=== PATIENT | male | born 1955 | race Caucasian/White ===

== ENCOUNTER 2016-08-07 17:13 | Inpatient (IN) | payer OTHER ==
[~2016-08-07] VITALS: Ht 175.3 cm; Wt 76.2 kg
--- NOTE | ~2016-08-07 | EKG ---
[address] [place] [address] ELECTROCARDIOGRAM REPORT Name: RALF LOUIS Room #: 436-P ADM IN M.R.#: [id number] Admission: 08/07/16 Attend Phys: Trevin Cuba MD Discharge: Date of : 51 Report #: [id number] THIS REPORT FOR: //name// [facility] ED Test Date: 2016-08-07 Test Time: 18:26:57 Pat Name: RALF LOUIS Department: Room: 436 Gender: M Acute Care Physician: : 1955 Requested By: Everette Norman Order Number: [id number] MD: Fortunato Meyers Measurements Intervals [place] Rate: 96 P: 67 CA: 136 QRS: 3 QRSD: 107 T: 20 QT: 372 QTc: 471 Interpretive Statements Sinus rhythm Low voltage, extremity leads RSR' in V1 or V2, right VCD or RVH Nonspecific T abnormalities, anterior leads No previous ECG available for comparison Electronically Signed On 08-09-2016 14:10:22 BASTING MACHINE OPERATOR by Fortunato Meyers [email or web address] <ELECTRONICALLY SIGNED> By: Fortunato Meyers MD, [facility] 08/09/16 1410 182 182 Fortunato Meyers MD, [facility] /EPI
--- NOTE | ~2016-08-07 | HC ---
[facility] [place] [address] CONSULTATION Name: RALF LOUIS JR Room #: 436-P [facility] IN .R.#: [id number] Admission: 08/07/16 Attend Phys: Trevin Cuba MD Discharge: Date of : 51 Report #: [id number] THIS REPORT FOR: //name// CC: Tristan Cuba DATE OF SERVICE: 08/08/2016 HISTORY OF PRESENT ILLNESS: The patient is 61-year-old male who was admitted for gross hematuria. He had a Singh catheter placed, but the nurse was unable to keep it from clotting off. In fact, they placed a very small 16 Cymro Singh catheter. The patient states that he has not had previous prostate surgery. He has had a chronic catheter for sometime, but is unsure of the length of time. He is unsure of why he has a chronic catheter. MEDICATIONS: Exelon, Tylenol, insulin, Celexa, hydrochlorothiazide, DiaBeta, Zestril, Flomax. FAMILY HISTORY, SOCIAL HISTORY AND REVIEW OF SYSTEMS: Per the chart. PHYSICAL EXAMINATION: ABDOMEN: Soft. He has got a small Singh catheter in place which is not draining. IMPRESSION AND PLAN: 1. Gross hematuria/clot retention. We will plan for placement of a 3-way Singh catheter to begin irrigation. He will also need upper tract studies with a renal ultrasound or other evaluation. However, this is likely due to his chronic catheter. 2. Procedure Note: The patient's Singh catheter was removed. His penis was prepped and draped in usual fashion. A 10 mL of lubricant was infused into the urethra. A 20-Cymro 3-way catheter was easily placed. I then irrigated his bladder clear of clots using 2 L of fluid. The urine was noted to be light pink. I attempted to start 3-way irrigation, but there was no tubing on the floor or any other stations on the 4th floor. They will obtain the tubing and begin continuous bladder irrigation. <ELECTRONICALLY SIGNED> By: Gunnar Saldana MD 08/09/16 0709 1231 0028 Gunnar Saldana MD /nt
[~2016-08-07 17:13] MED LIST: AMOX TR-K CLV1 EAC4 PO; APAP500; ASPIRIN81 M2 PO; ATORVASTATIN CA10 MG PO; AUGMENTIN 875875 MG PO; AZITHROMYCIN 2250 MG PO; BACTRIM DS TAB1 EACH PO; BAYER CHEWABLE81 MG PO; CEFTIN 250 MG250 MG; CEFTIN 250 MG250 MG PO; CELEXA 20 MG TA20 M1 PO; CIPRO500 MG PO; CIPROFLOXACIN500 M1 PO; DUONEB 2.5-0.5 M3 ML INH; ENOXAPARIN30 MG/0.1 SUBQ; EXELON 9.5 MG9.5 MG TD; EXELON1 EAC1 TRANSDERM; GLIPIZIDE XL10 MG PO; GLUCOPHAGE1000 MG PO; GLUCOPHAGE850 MG PO; GLYBURIDE 2.52.5 MG PO; GLYCOLAX17 GM PO; HUMULINR100; HYDROCHLOROTH12.5 M1 PO; IBUPROFEN 800800 M1 PO; KEFLEX500 MG PO; KEPPRA 500 MG500 M1 PO; LANTUS SUBQ; LISINOPRIL20 MG PO; MULTIVITAMINS1 EAC7; MULTIVITAMINS1 EAC7 PO; NIACIN 500 MG500 M1 PO; NOVOLOG100 UNIT/1; OMEGA-31000 M1 PO; OYSTER SHELL+D1 EAC1 PO; POLYETHYLENE GLY1 G1; POTASSIUM20 PO; PRINIVIL20 MG PO; PROBIOTIC1 EAC1 PO; PROTONIX40 M1 PO; RISAMINE OINTM113 GM; RIVASTIGMINE TRANSDERM; SIMVASTATIN20 MG PO; TAMSULOSIN HCL0.4 M1 PO; TRAMADOL 50 MG50 MG PO; TYLENOL325 MG PO; VITAMIN D2400 UNIT PO; VITAMIN D250000 UNIT; VITAMIN D250000 UNIT PO; VITAMIN D3400 UNIT PO; VITAMIN D400 UNIT PO; VITAMINC500 PO
[2016-08-07 17:17] VITALS: BP 106/64
[2016-08-07 17:51] LABS: HEMATOCRIT 35.7 % (42.0-52.0); HEMOGLOBIN 11.7 gm/dL (14.0-18.0); MCH 26.7 pg (26.0-34.0); MCHC 32.9 % (28.0-37.0); MCV 81.4 fL (80.0-100.0); PLATELET COUNT 188 thou/uL (150-400); RBC 4.39 mil/uL (4.50-6.00); RDW 15.2 % (10.5-14.5); WBC 20.7 thou/uL (4.0-11.0)
[2016-08-07 17:54] LABS: MANUAL DIFF YES
[2016-08-07 18:05] LABS: ABG SAMPLE TYPE ARTERIAL; BE(vivo) 0.3 mmol/L (-2 to +3); HCO3 24.7 mmol/L (22.0-26.0); LACTATE 1.14 mmol/L (0.5-2.0); O2(CT) 14.5 mL/dL (15.0-23.0); O2Hb 93.2 % (92.0-98.0); PCO2 39.2 mmHg (35.0-45.0); PO2 76.1 mmHg (80.0-100.0); pH 7.418 (7.360-7.450); sO2 95.5 % (92.0-98.0); tCO2 25.9 mmol/L (24.0-30.0)
[2016-08-07 18:07] LABS: ABG COMMENT ROOM AIR; STICK SITE R.RADIAL
[2016-08-07 18:07] LABS: ANION GAP 11 mmol/L (7-16); BUN 59 mg/dL (7-18); CALCIUM 8.7 mg/dL (8.5-10.1); CHLORIDE 114 mmol/L (98-107); CO2 25 mmol/L (21-32); CREATININE 1.6 mg/dL (0.6-1.3); GLUCOSE 160 mg/dL (70-99); POTASSIUM 3.6 mmol/L (3.5-5.1); SODIUM 150 mmol/L (136-145)
[2016-08-07 18:14] LABS: ALBUMIN 2.7 g/dL (3.4-5.0); ALKALINE PHOSPHATASE 57 U/L (46-116); DIRECT BILIRUBIN 0.2 mg/dL (<0.1-0.3); NT-PRO BRAIN NAT PEPTIDE 901 pg/mL (<300); SGOT 12 U/L (15-37); SGPT 7 U/L (30-65); TOTAL BILIRUBIN 0.6 mg/dL (<0.1-1.0); TOTAL PROTEIN 6.2 g/dL (6.4-8.2); TROPONIN-I < 0.04 ng/mL (<0.04-0.07)
[2016-08-07 18:28] LABS: TOTAL CELL COUNT 100
[2016-08-07 18:29] LABS: LARGE PLATELETS RARE
[2016-08-07 19:54] VITALS: BP 103/48
[2016-08-07 20:00] VITALS: BP 122/64
[2016-08-08 00:41] VITALS: BP 122/69
[2016-08-08 05:40] LABS: PROTIME 10.2 Seconds (9.3-11.4)
[2016-08-08 05:50] LABS: ALBUMIN 2.6 g/dL (3.4-5.0); CALCIUM 8.7 mg/dL (8.5-10.1); CREATININE 1.1 mg/dL (0.6-1.3); MAGNESIUM 2.2 mg/dL (1.8-2.4); POTASSIUM 3.4 mmol/L (3.5-5.1); TOTAL BILIRUBIN 0.8 mg/dL (<0.1-1.0); TOTAL PROTEIN 6.2 g/dL (6.4-8.2)
[2016-08-08 06:14] LABS: HEMATOCRIT 35.2 % (42.0-52.0); HEMOGLOBIN 11.5 gm/dL (14.0-18.0); MCH 26.8 pg (26.0-34.0); MCHC 32.8 % (28.0-37.0); MCV 81.7 fL (80.0-100.0); PLATELET COUNT 190 thou/uL (150-400); RBC 4.31 mil/uL (4.50-6.00); RDW 14.8 % (10.5-14.5); WBC 14.3 thou/uL (4.0-11.0)
[2016-08-08 06:17] LABS: MANUAL DIFF YES
[2016-08-08 08:00] VITALS: BP 118/60
[2016-08-08 09:59] LABS: ABSOLUTE NEUTROPHILS 12.3 thou/uL (1.4-8.2); MYELOCYTES 1 %; TOTAL CELL COUNT 100
[2016-08-08 10:01] LABS: ANISOCYTOSIS 1+; OVALOCYTES 1+
[2016-08-08 12:00] VITALS: BP 142/82
[2016-08-08 14:49] LABS: URINE BLOOD 3+ (Negative); URINE COLOR RED; URINE GLUCOSE-RANDOM* NEGATIVE (Negative); URINE KETONES TRACE (Negative); URINE LEUKOCYTES-REFLEX 2+ (Negative); URINE PROTEIN (DIPSTICK) 3+ (Negative)
[2016-08-08 14:50] LABS: ICTOTEST (BILI CONFIRMATORY) Negative (Negative); URINE BILIRUBIN NEGATIVE (Negative)
[2016-08-08 14:52] LABS: SSA (PROTEIN CONFIRMATORY) 3+ (APPROX. 200-500) mg/dL (Negative)
[2016-08-08 15:01] LABS: CASTS None Seen /LPF (None Seen); SQUAMOUS 0-3 Few /LPF (0-3); URINE RBC >20 Many /HPF (0-2); URINE WBC-REFLEX >25 Many /HPF (0-5)
[2016-08-08 16:00] VITALS: BP 155/85
[2016-08-08 19:45] VITALS: BP 111/61
[2016-08-09 03:08] VITALS: BP 113/55
[2016-08-09 08:00] VITALS: BP 122/71
[2016-08-09 08:12] LABS: ALBUMIN 2.4 g/dL (3.4-5.0); CALCIUM 7.9 mg/dL (8.5-10.1); CREATININE 0.8 mg/dL (0.6-1.3); TOTAL BILIRUBIN 0.7 mg/dL (<0.1-1.0); TOTAL PROTEIN 5.8 g/dL (6.4-8.2)
[2016-08-09 12:00] VITALS: BP 123/73
[2016-08-09 16:00] VITALS: BP 127/77
[2016-08-09 20:55] VITALS: BP 133/64
[2016-08-10 04:15] VITALS: BP 138/82
[2016-08-10 05:29] LABS: HEMATOCRIT 28.8 % (42.0-52.0); HEMOGLOBIN 9.8 gm/dL (14.0-18.0); MCH 27.3 pg (26.0-34.0); MCHC 34.1 % (28.0-37.0); MCV 80.1 fL (80.0-100.0); RBC 3.6 mil/uL (4.50-6.00); RDW 14.6 % (10.5-14.5); WBC 6.3 thou/uL (4.0-11.0)
[2016-08-10 05:38] LABS: ALBUMIN 2.2 g/dL (3.4-5.0); CALCIUM 7.6 mg/dL (8.5-10.1); CREATININE 0.7 mg/dL (0.6-1.3); PHOSPHORUS 2.9 mg/dL (2.5-4.9)
[2016-08-10 06:03] LABS: POTASSIUM 2.6 mmol/L (3.5-5.1)
[2016-08-10 08:00] VITALS: BP 139/60
[2016-08-10] MEDS ORDERED: AUGMENTIN 875875 MG PO (10:57)
[2016-08-10 12:00] VITALS: BP 136/72
[2016-08-10 15:45] LABS: MAGNESIUM 1.9 mg/dL (1.8-2.4); POTASSIUM 3.6 mmol/L (3.5-5.1)
[2016-08-10 16:00] VITALS: BP 142/70
== END 2016-08-10 16:48 | DRG 871 ==
LOC: ER 17:13 → EROBS 19:20 → 4S 19:20 → EROBS 19:58 → 4S 21:14
PROVIDERS: Hospitalist; Nurse Practitioner
DX: A41.9 Sepsis, unspecified organism (principal); G93.49 Other encephalopathy; N39.0 Urinary tract infection, site not specified; J90 Pleural effusion, not elsewhere classified; E87.0 Hyperosmolality and hypernatremia; J32.8 Other chronic sinusitis; F32.9 Major depressive disorder, single episode, unspecified; R31.9 Hematuria, unspecified; E78.5 Hyperlipidemia, unspecified; N40.0 Benign prostatic hyperplasia without lower urinary tract symptoms; E11.40 Type 2 diabetes mellitus with diabetic neuropathy, unspecified; F03.90 Unspecified dementia, unspecified severity, without behavioral disturbance, psychotic disturbance, mood disturbance, and anxiety; D72.829 Elevated white blood cell count, unspecified; E86.0 Dehydration; Z79.899 Other long term (current) drug therapy; Z88.1 Allergy status to other antibiotic agents; Z85.46 Personal history of malignant neoplasm of prostate; Z86.14 Personal history of Methicillin resistant Staphylococcus aureus infection; Z86.73 Personal history of transient ischemic attack (TIA), and cerebral infarction without residual deficits; Z79.82 Long term (current) use of aspirin
CPT/HCPCS: 10100

== ENCOUNTER 2017-01-05 02:18 | Inpatient (IN) | payer OTHER ==
[~2017-01-05] VITALS: Ht 182.9 cm; Wt 82.6 kg
[2017-01-05] VITALS (31 sets, daily range): BP systolic 82–101; BP diastolic 38–61
--- NOTE | ~2017-01-05 | HC ---
[facility] [place] [address] CONSULTATION Name: RALF LOUIS JR Room #: 246-P [facility] IN .R.#: [id number] Admission: 01/05/17 Attend Phys: rTevin Cuba MD Discharge: Date of : 51 Report #: [id number] THIS REPORT FOR: //name// CC: Socrates Cuba DATE OF SERVICE: 01/05/2017 REASON FOR CONSULTATION: I was asked to evaluate concerning septic shock and gram-negative bacteremia. HISTORY OF PRESENT ILLNESS: The patient was a 61-year-old history of stroke, aphasia and neurogenic bladder who has had a chronic indwelling Singh catheter and history of nephrolithiasis. Actually had bladder stones removed in September of this year. He presents from the fdc with change in mental status and gross hematuria from his Singh catheter. Here, he has been tachycardic and had blood pressure down in the 80 systolic. He had temperature up to 104.3 degrees. His respiratory status has remained stable. He remains encephalopathic. Although his white count was normal, he had 29% bands and evidence of pyuria, hematuria and bacteriuria on his urinalysis. He was taken to the Intensive Care Unit after fluid resuscitation. Still on normal saline drip at 125 mL/hr. Remains on oxygen per nasal cannula. He has had recurrent urinary tract infections in the past. ALLERGIES: No medication allergies, is allergic to BEESTINGS. MEDICATIONS: As noted on his MAR, now on vancomycin and Zosyn. PAST MEDICAL HISTORY: Significant chronic sinusitis, depression, hyperlipidemia, bursitis of his shoulder, metabolic encephalopathy, frequent urinary tract infections, BPH, diabetes, prostate cancer, stroke in 2008, left lung noncalcified granuloma identified in 2012, dementia, hypertension. FAMILY HISTORY: Noncontributory. SOCIAL HISTORY: Nonsmoker, no significant alcohol intake. Now resides in a fdc. The patient is able to ambulate and feed himself. He remains aphasic. REVIEW OF SYSTEMS: As noted above with no additions including no nausea, vomiting or diarrhea. There has been no cough or sputum production. He has had no rash or decubiti. PHYSICAL EXAMINATION: VITAL SIGNS: Temperature now is 98.4 degrees, blood pressure 94/52, heart rate [address] [address] CONSULTATION Name: HERIBERTORALF Shani Room #: [facility] IN [facility].#: [id number] Admission: 01/05/17 Attend Phys: Trevin Cuba MD Discharge: Date of : 53 Report #: [id number] 120, respiratory rate 23. IV site unremarkable. GENERAL: He remains in bed, lethargic, although will nod his head yes or no. Did not seem to be in any pain. SKIN: Unremarkable. LYMPH: Unremarkable. EYES: Unremarkable. MOUTH: Unremarkable. NECK: Supple. LUNGS: Few crackles in the left base posteriorly. HEART: Regular, without murmur, tachycardic. ABDOMEN: Soft, nontender, no hepatosplenomegaly or mass. He had mild left CVA tenderness. Had a large indwelling Singh catheter. There is some bleeding around the catheter. EXTREMITIES: Unremarkable. LABORATORY STUDIES: Sodium 148, potassium 3.3, bicarbonate 22, creatinine 2.1, ALT 27, bilirubin normal, alkaline phosphatase 167, lactate 3.7. Hemoglobin 12.1, platelet count 164,000, white count 6.3 with 29% bands. Urinalysis positive for bacteria, rbc's and wbc's. Chest x-ray, left lower lobe atelectasis. Blood cultures 1 of 2 showing gram-negative bacilli. Urine culture is pending. IMPRESSION: A 61-year-old post-stroke, fairly compromised with aphasia and underlying dementia, neurogenic bladder, nephrolithiasis who presents with gram negative septic shock related to urinary tract infection. PLAN: Recommend sepsis support, broad IV antibiotic therapy, CT scan of the abdomen to ensure no upper tract obstruction. <ELECTRONICALLY SIGNED> By: Claudio Ashraf MD 01/06/17 0942 1637 07 Claudio Ashraf MD /nt
--- NOTE | ~2017-01-05 | EKG ---
[address] [address] ELECTROCARDIOGRAM REPORT Name: RALF LOUIS Room #: 251-P ADM IN M.R.#: [id number] Admission: 01/05/17 Attend Phys: Trevin Cuba MD Discharge: Date of : 51 Report #: [id number] THIS REPORT FOR: //name// [facility] ED Test Date: 2017-01-05 Test Time: 03:19:09 Pat Name: RALF LOUIS Department: Room: 251 P Gender: M Medical Translator: ALEE : 1955 Requested By: Trevin Cuba Order Number: [id number] MD: Fortunato Meyers Measurements Intervals [place] Rate: 163 P: 57 NM: 111 QRS: -15 QRSD: 108 T: 15 QT: 275 QTc: 453 Interpretive Statements Sinus tachycardia with frequent atrial premature complexes Borderline left axis deviation Abnormal R-wave progression, early transition ST depression, probably rate related no previous ECGs available for comparison Electronically Signed On 01-05-2017 9:02:38 CDT by Fortunato Meyers [email or web address] <ELECTRONICALLY SIGNED> By: Fortunato Meyers MD, [facility] 01/05/17 0902 0319 Fortunato Meyers MD, [facility] /EPI
[2017-01-05 03:00] LABS: HEMATOCRIT 36.5 % (42.0-52.0); HEMOGLOBIN 12.1 gm/dL (14.0-18.0); MCV 81.6 fL (80.0-100.0); PLATELET COUNT 164 thou/uL (150-400); RBC 4.47 mil/uL (4.50-6.00); RDW 14.6 % (10.5-14.5); WBC 6.3 thou/uL (4.0-11.0)
[2017-01-05 03:01] LABS: MANUAL DIFF YES
[2017-01-05 03:07] LABS: APTT 25.8 Seconds (24.5-32.8); CALCIUM 8.7 mg/dL (8.5-10.1); CREATININE 2.1 mg/dL (0.7-1.3); INR 1.1; POTASSIUM 3.3 mmol/L (3.5-5.1); PROTIME 11.3 Seconds (9.3-11.4)
[2017-01-05 03:12] LABS: ALBUMIN 2.7 g/dL (3.4-5.0); TOTAL PROTEIN 6.5 g/dL (6.4-8.2)
[2017-01-05 03:20] LABS: ABSOLUTE NEUTROPHILS 5.9 thou/uL (1.4-8.2); TOTAL CELL COUNT 100
[2017-01-05 04:17] LABS: URINE BILIRUBIN NEGATIVE (Negative); URINE BLOOD 3+ (Negative); URINE COLOR YELLOW; URINE GLUCOSE-RANDOM* TRACE (Negative); URINE KETONES NEGATIVE (Negative); URINE LEUKOCYTES-REFLEX 3+ (Negative); URINE PROTEIN (DIPSTICK) 1+ (Negative); URINE UROBILINOGEN 0.2 E.U./dl (0.2-1.0)
[2017-01-05 04:54] LABS: SQUAMOUS None Seen /LPF (0-3)
[2017-01-05 04:55] LABS: CASTS None Seen /LPF (None Seen); CRYSTALS None Seen /LPF (None Seen); TRANSITIONAL EPITHEL CELL >10 Many /LPF (None Seen); URINE WBC-REFLEX >25 Many /HPF (0-5)
[2017-01-05] MEDS ORDERED: EXELON1 EAC1 TD (08:11)
[2017-01-06] VITALS (16 sets, daily range): BP systolic 100–149; BP diastolic 58–96
[2017-01-06 02:37] LABS: HEMATOCRIT 30.4 % (42.0-52.0); MCH 26.7 pg (26.0-34.0); MCHC 32.6 g/dL (28.0-37.0); MCV 81.7 fL (80.0-100.0); PLATELET COUNT 121 thou/uL (150-400); RBC 3.72 mil/uL (4.50-6.00); RDW 14.6 % (10.5-14.5)
[2017-01-06 02:40] LABS: MANUAL DIFF YES
[2017-01-06 02:43] LABS: HEMOGLOBIN 9.9 gm/dL (14.0-18.0); WBC 28.1 thou/uL (4.0-11.0)
[2017-01-06 02:49] LABS: CALCIUM 7.4 mg/dL (8.5-10.1); MAGNESIUM 1.5 mg/dL (1.8-2.4); POTASSIUM 3.2 mmol/L (3.5-5.1)
[2017-01-06 02:50] LABS: CREATININE 1.1 mg/dL (0.7-1.3)
[2017-01-06 04:53] LABS: ABSOLUTE NEUTROPHILS 27.3 thou/uL (1.4-8.2); LARGE PLATELETS OCCASIONAL; TOTAL CELL COUNT 100; TOXIC GRANULATION 1+
[2017-01-07 03:57] VITALS: BP 139/92
[2017-01-07 06:00] LABS: HEMATOCRIT 30.8 % (42.0-52.0); HEMOGLOBIN 10.1 gm/dL (14.0-18.0); PLATELET COUNT 120 thou/uL (150-400); RBC 3.75 mil/uL (4.50-6.00); RDW 14.5 % (10.5-14.5); WBC 18.1 thou/uL (4.0-11.0)
[2017-01-07 06:02] LABS: MANUAL DIFF YES
[2017-01-07 06:25] LABS: CALCIUM 7.9 mg/dL (8.5-10.1); MAGNESIUM 1.6 mg/dL (1.8-2.4); POTASSIUM 3.1 mmol/L (3.5-5.1); TOTAL BILIRUBIN 0.4 mg/dL (<0.1-1.0); TOTAL PROTEIN 5.5 g/dL (6.4-8.2)
[2017-01-07 07:45] VITALS: BP 143/85; BP 144/84
[2017-01-07 07:45] LABS: ABSOLUTE NEUTROPHILS 16.8 thou/uL (1.4-8.2); ANISOCYTOSIS 1+; METAMYELOCYTES 1 %; OVALOCYTES FEW; TOTAL CELL COUNT 100
[2017-01-07 11:34] VITALS: BP 142/94
[2017-01-07 15:24] VITALS: BP 143/88
[2017-01-07 19:44] VITALS: BP 160/90
[2017-01-08 03:39] VITALS: BP 143/78
[2017-01-08 06:11] LABS: HEMATOCRIT 31.2 % (42.0-52.0); HEMOGLOBIN 10.3 gm/dL (14.0-18.0); MCH 27.1 pg (26.0-34.0); MCHC 33.1 g/dL (28.0-37.0); PLATELET COUNT 110 thou/uL (150-400); RBC 3.81 mil/uL (4.50-6.00); RDW 14.4 % (10.5-14.5); WBC 13.3 thou/uL (4.0-11.0)
[2017-01-08 06:18] LABS: MANUAL DIFF YES
[2017-01-08 06:19] LABS: CALCIUM 7.9 mg/dL (8.5-10.1); CREATININE 0.8 mg/dL (0.7-1.3); MAGNESIUM 1.2 mg/dL (1.8-2.4)
[2017-01-08 06:35] LABS: POTASSIUM 2.9 mmol/L (3.5-5.1)
[2017-01-08 07:43] LABS: ABSOLUTE NEUTROPHILS 11.2 thou/uL (1.4-8.2); ANISOCYTOSIS 1+; ATYPICAL LYMPHS 1 %; OVALOCYTES 1+; TOTAL CELL COUNT 100
[2017-01-08 08:18] VITALS: BP 144/86
[2017-01-08 13:03] VITALS: BP 141/87
[2017-01-08 17:12] VITALS: BP 135/79
[2017-01-08 19:22] VITALS: BP 135/79
[2017-01-08 20:37] LABS: MAGNESIUM 1.3 mg/dL (1.8-2.4); POTASSIUM 3.4 mmol/L (3.5-5.1)
[2017-01-09 03:24] VITALS: BP 126/81
[2017-01-09 05:17] LABS: BASOPHILS 0.1 % (0.0-2.0); EOSINOPHILS 3.4 % (0.0-3.0); HEMOGLOBIN 10.6 gm/dL (14.0-18.0); LYMPHOCYTES 9.9 % (24.0-44.0); MCH 26.8 pg (26.0-34.0); MCV 81.2 fL (80.0-100.0); MONOCYTES 7.3 % (1.0-8.0); PLATELET COUNT 110 thou/uL (150-400); POLYS 79.3 % (36.0-66.0); RBC 3.94 mil/uL (4.50-6.00); RDW 14.7 % (10.5-14.5); WBC 12.7 thou/uL (4.0-11.0)
[2017-01-09 05:26] LABS: MAGNESIUM 2.1 mg/dL (1.8-2.4); POTASSIUM 3.2 mmol/L (3.5-5.1)
[2017-01-09 05:29] LABS: MANUAL DIFF NO
[2017-01-09 07:41] VITALS: BP 130/73
[2017-01-09] MEDS ORDERED: PROTONIX40 M1 PO (11:42)
[2017-01-09 11:43] VITALS: BP 132/80
[2017-01-09] MEDS ORDERED: AUGMENTIN 875875 MG PO (11:44)
[2017-01-09 15:34] VITALS: BP 130/82
== END 2017-01-09 16:26 | DRG 871 ==
LOC: ER 02:18 → EROBS 03:17 → ICU 03:17 → 4W 01-06 14:52
PROVIDERS: Emergency Medicine; Hospitalist; Nurse Practitioner; Specialist
DX: A41.81 Sepsis due to Enterococcus (principal); J18.9 Pneumonia, unspecified organism; R65.21 Severe sepsis with septic shock; N39.0 Urinary tract infection, site not specified; N12 Tubulo-interstitial nephritis, not specified as acute or chronic; N17.9 Acute kidney failure, unspecified; E87.0 Hyperosmolality and hypernatremia; E44.0 Moderate protein-calorie malnutrition; A41.59 Other Gram-negative sepsis; F32.9 Major depressive disorder, single episode, unspecified; E78.5 Hyperlipidemia, unspecified; Z66 Do not resuscitate; E83.42 Hypomagnesemia; K59.00 Constipation, unspecified; B96.20 Unspecified Escherichia coli [E. coli] as the cause of diseases classified elsewhere; B96.1 Klebsiella pneumoniae [K. pneumoniae] as the cause of diseases classified elsewhere; E11.40 Type 2 diabetes mellitus with diabetic neuropathy, unspecified; I10 Essential (primary) hypertension; F03.90 Unspecified dementia, unspecified severity, without behavioral disturbance, psychotic disturbance, mood disturbance, and anxiety; E86.0 Dehydration; R31.0 Gross hematuria; N40.1 Benign prostatic hyperplasia with lower urinary tract symptoms; R33.8 Other retention of urine; E87.6 Hypokalemia; E11.65 Type 2 diabetes mellitus with hyperglycemia; Z68.24 Body mass index [BMI] 24.0-24.9, adult; I69.320 Aphasia following cerebral infarction; Z86.14 Personal history of Methicillin resistant Staphylococcus aureus infection; I69.319 Unspecified symptoms and signs involving cognitive functions following cerebral infarction; Z85.46 Personal history of malignant neoplasm of prostate; Z91.030 Bee allergy status; Z79.4 Long term (current) use of insulin; Z79.82 Long term (current) use of aspirin; Z79.84 Long term (current) use of oral hypoglycemic drugs; Z79.899 Other long term (current) drug therapy
CPT/HCPCS: 10045; 10078; 50455

== ENCOUNTER 2017-04-10 16:20 | Emergency (ER) | payer OTHER ==
[~2017-04-10] VITALS: Ht 182.9 cm; Wt 81.7 kg
[~2017-04-10 16:20] MED LIST changes: +EXELON1 EAC1 TD
[2017-04-10 16:52] LABS: HEMATOCRIT 34.9 % (42.0-52.0); HEMOGLOBIN 11.3 gm/dL (14.0-18.0); MCH 26.1 pg (26.0-34.0); MCHC 32.5 g/dL (28.0-37.0); MCV 80.2 fL (80.0-100.0); PLATELET COUNT 192 thou/uL (150-400); RBC 4.35 mil/uL (4.50-6.00); RDW 16.2 % (10.5-14.5); WBC 13.5 thou/uL (4.0-11.0)
[2017-04-10 16:53] LABS: MANUAL DIFF YES
[2017-04-10 17:01] LABS: CALCIUM 8.5 mg/dL (8.5-10.1); CREATININE 0.9 mg/dL (0.7-1.3); POTASSIUM 3.4 mmol/L (3.5-5.1)
[2017-04-10 17:06] LABS: ALBUMIN 3.2 g/dL (3.4-5.0); TOTAL BILIRUBIN 0.3 mg/dL (<0.1-1.0); TOTAL PROTEIN 6.6 g/dL (6.4-8.2)
[2017-04-10 17:10] LABS: PROTIME 10.1 Seconds (9.3-11.4)
[2017-04-10 17:20] LABS: URINE BLOOD 3+ (Negative); URINE COLOR RED; URINE GLUCOSE-RANDOM* NEGATIVE (Negative); URINE KETONES TRACE (Negative); URINE NITRITE POSITIVE (Negative); URINE PROTEIN (DIPSTICK) 3+ (Negative); URINE SPECIFIC GRAVITY 1.015 (1.003-1.035)
[2017-04-10 17:21] LABS: URINE BILIRUBIN NEGATIVE (Negative)
[2017-04-10 17:22] LABS: SQUAMOUS None Seen /LPF (0-3)
[2017-04-10 17:23] LABS: CASTS None Seen /LPF (None Seen); CRYSTALS None Seen /LPF (None Seen); URINE RBC >20 Many /HPF (0-2); URINE WBC 6-15 Few /HPF (0-5)
[2017-04-10 17:26] LABS: ABSOLUTE NEUTROPHILS 10.7 thou/uL (1.4-8.2); TOTAL CELL COUNT 100
[2017-04-10 17:27] LABS: ANISOCYTOSIS 1+
[2017-04-10] MEDS ORDERED: KEFLEX500 MG PO (18:11)
== END 2017-04-10 19:22 ==
LOC: ER 16:20
PROVIDERS: Physician Assistant
DX: N39.0 Urinary tract infection, site not specified (principal); F32.9 Major depressive disorder, single episode, unspecified; E78.5 Hyperlipidemia, unspecified; E11.40 Type 2 diabetes mellitus with diabetic neuropathy, unspecified; I10 Essential (primary) hypertension; N40.0 Benign prostatic hyperplasia without lower urinary tract symptoms; Z87.440 Personal history of urinary (tract) infections; Z86.73 Personal history of transient ischemic attack (TIA), and cerebral infarction without residual deficits; Z79.4 Long term (current) use of insulin; F03.90 Unspecified dementia, unspecified severity, without behavioral disturbance, psychotic disturbance, mood disturbance, and anxiety

== ENCOUNTER 2017-07-27 07:45 | Inpatient (IN) | payer OTHER ==
[2017-07-27] VITALS (7 sets, daily range): BP systolic 128–143; BP diastolic 75–85
[~2017-07-27] VITALS: Ht 165.1 cm; Wt 77.8 kg
--- NOTE | ~2017-07-27 | HC ---
[facility] [place] [address] CONSULTATION Name: RALF LOUIS Room #: 352-P [facility] IN M.R.#: [id number] Admission: 07/27/17 Attend Phys: Rei Enciso DO Discharge: 08/03/17 Date of : 51 Report #: [id number] THIS REPORT FOR: //name// CC: Tristan Enciso DATE OF SERVICE: 07/29/2017 REASON FOR CONSULTATION: Acute renal failure. HISTORY OF PRESENT ILLNESS: This unfortunate, extended care facility patient presented 2 days ago with decreased mental status and gross hematuria. He was taken to the emergency room, felt to have sepsis, admitted, given IV fluids. His creatinine initially was 3.6, falling to 2.0. His mental status has improved. PAST MEDICAL HISTORY: He has chronic cognitive impairment, previous stroke, also dementia, hypertension, recurrent urinary tract infection, diabetes, and history of prostate cancer. FAMILY HISTORY: Please see old charts. SOCIAL HISTORY: No substantial cigarettes or alcohol. He apparently can walk and feed himself, but he is aphasic and chronically confused. REVIEW OF SYSTEMS: Difficult to evaluate. He is awake and alert, does not really answer any questions because of his aphasia, but appears to be comfortable. He is currently being fed with a nasogastric Dobhoff tube. PHYSICAL EXAMINATION: GENERAL: This is a chronically ill-appearing patient, he does not appear to be in any distress. SKIN: Unremarkable. SKELETAL: Well developed, well nourished. HEENT: Extraocular movements are full. Dobbhoff tube is in place. Mucous membranes are slightly dry. NECK: Supple. No carotid bruits. No lymphadenopathy. CHEST: Clear to auscultation. HEART: Regular. ABDOMEN: Soft and nontender. Indwelling Singh catheter in place. EXTREMITIES: Show no peripheral edema. Pulses intact. NEUROLOGIC: He moves all extremities. LABORATORY DATA: Initial urinalysis showed blood, bacteria, positive nitrite. Cultures revealing Proteus mirabilis, which is of no surprise with the urine pH of 8.5. White blood count 19.2, down to 15.5 with 1 band initially and [facility] [address] [place] [address] CONSULTATION Name: RALF LOUIS Room #: 352-P [facility] IN .R.#: [id number] Admission: 07/27/17 Attend Phys: Rei Enciso DO Discharge: 08/03/17 Date of : 53 Report #: [id number] platelets are 143. The sodium was 151, but is up to 163 after receiving isotonic fluid replacement; creatinine has fallen from 3.6-2.0, BUN from 123, down to 80. Of note, baseline creatinine from admission earlier of this year about 0.9. ASSESSMENT: 1. Acute kidney injury, dehydration and volume depletion, recovering nicely. He is now receiving volume enterally that is likely adequate. 2. Hypernatremia, severe free water deficit. We will increase free water. He is on D5 and W. We will also add free water down the tube. 3. Chronic cognitive impairment with aphasia, status post stroke. 4. History of hypertension. 5. History of recurrent urinary tract infection. <ELECTRONICALLY SIGNED> By: Carl Retana MD 08/04/17 1212 1121 1252 Carl Retana MD /nt
--- NOTE | ~2017-07-27 | EKG ---
[address] [address] ELECTROCARDIOGRAM REPORT Name: RALF LOUIS JR Room #: 170-10 ADM IN M.R.#: [id number] Admission: 07/27/17 Attend Phys: Rei Enciso DO Discharge: Date of : 53 Report #: [id number] THIS REPORT FOR: //name// [facility] ED Test Date: 2017-07-27 Test Time: 07:48:29 Pat Name: RALF LOUIS Department: Room: 170 Gender: M Wrapper Sizer: MADDIE : 1955 Requested By: Socrates Weston Order Number: [id number] MD: Patrick Sal Measurements Intervals [place] Rate: 129 P: 99 SD: 128 QRS: -42 QRSD: 94 T: 31 QT: 332 QTc: 487 Interpretive Statements Sinus tachycardia Probable left atrial enlargement Left axis deviation RSR' in V1 or V2, probably normal variant Minimal ST depression, lateral leads Compared to ECG 01/05/2017 03:19:09 RSR' in V1 or V2 now present Atrial premature complex(es) no longer present ST (T wave) deviation still present Electronically Signed On 07-27-2017 9:04:58 SOAP SLABBER by Patrick Sal [email or web address] <ELECTRONICALLY SIGNED> By: Patrick Sal MD 07/27/1704 7 7 Patrick Sal MD /EPI
--- NOTE | ~2017-07-27 | HC ---
[facility] [place] [address] CONSULTATION Name: RALF LOUIS JR Room #: 352-P ADM IN M.R.#: [id number] Admission: 07/27/17 Attend Phys: Rei Enciso DO Discharge: Date of : 53 Report #: [id number] THIS REPORT FOR: //name// CC: Tristan Enciso REASON FOR CONSULTATION: I was asked to evaluate concerning sepsis. HISTORY OF PRESENT ILLNESS: The patient is a 62-year-old longterm resident with previous history of stroke, aphasia and some underlying dementia. He had deterioration last evening when he was found to have some gross hematuria. Then, this morning he was minimally responsive. He was brought into the emergency room. He was febrile prior to his arrival. Subsequently, he has been afebrile and hemodynamically stable other than tachycardic. He has been very lethargic, but does arouse. He did receive a dose of vancomycin, Zosyn and Levaquin in the emergency room. He has had a creatinine up to 3 with bloody urine, now with a Singh catheter in place. His oxygen requirements have been 2 liters per nasal cannula. There has been no nausea, vomiting, or diarrhea. No rash or decubitus. He has had no cough or sputum production. ALLERGIES: To BEE STINGS. MEDICATIONS: As noted on his MAR including the vancomycin, Levaquin, and Zosyn. PAST MEDICAL HISTORY: Depression, metabolic encephalopathy, stroke, dementia, hypertension, hyperlipidemia, recurrent urinary tract infections, BPH, diabetes, prostate cancer, left lung noncalcified granuloma stable from previous. FAMILY HISTORY: Noncontributory. SOCIAL HISTORY: Nonsmoker, no significant alcohol intake. Apparently, he is able to ambulate and feed himself, but essentially aphasic, although during his last hospital stay, he was able to converse some and communicate. REVIEW OF SYSTEMS: As noted above. PHYSICAL EXAMINATION: VITAL SIGNS: Afebrile and hemodynamically stable. GENERAL: The patient was lethargic. He would arouse with verbal stimulus. I was able to get him to sit up in bed. He would answers questions by nodding or shaking his head. HEENT: Unremarkable. NECK: Supple. LUNGS: Clear. HEART: Regular without murmur. ABDOMEN: Soft, mild tenderness in the lower abdomen. He had indwelling Singh catheter with unremarkable external genitalia. Rectal examination was not [address] [address] CONSULTATION Name: RALF LOUIS Room #: 352-P [facility] IN [facility]#: [id number] Admission: 07/27/17 Attend Phys: Rei Enciso DO Discharge: Date of : 51 Report #: [id number] performed. He did have some CVA tenderness on the right. Abdomen was without mass or hepatosplenomegaly. EXTREMITIES: Unremarkable. LABORATORY STUDIES: Urinalysis had few wbc's, many rbc's, many bacteria. Hemoglobin 11.9, platelet count 153,000, white count was 19.2, 89% segs, 1% band. Lactate 1.1. Sodium 151, potassium 3.9, bicarbonate 24, creatinine is 3.6. Liver function test normal. Chest x-ray, mild increased basilar atelectasis. IMPRESSION: A 62-year-old with urinary tract infection, that has been a recurring issue. His previous CAT scan did show significant inflammatory change to his bladder. I was concerned about a possible enterovesicular fistula, but this was yet to be proven. He did have Enterococcus and Klebsiella in his urine and blood in December. I would recommend continuing broad antibiotic coverage with Zosyn and obtain a contrast study giving dye to see if he has a fistulous tract. We will hydrate, so we can improve his creatinine and follow up CBC and BMP in a.m. <ELECTRONICALLY SIGNED> By: Claudio Ashraf MD 07/28/17 1259 1716 1821 Claudio Ashraf MD /nt
[~2017-07-27 07:45] MED LIST changes: +ULTRAM 50MG TAB50 MG PO
[2017-07-27 08:02] LABS: HEMATOCRIT 35.6 % (42.0-52.0); HEMOGLOBIN 11.9 gm/dL (14.0-18.0); MCH 25.9 pg (26.0-34.0); MCHC 33.6 g/dL (28.0-37.0); MCV 77.3 fL (80.0-100.0); PLATELET COUNT 153 thou/uL (150-400); RDW 17.3 % (10.5-14.5); WBC 19.2 thou/uL (4.0-11.0)
[2017-07-27 08:11] LABS: CALCIUM 9.1 mg/dL (8.5-10.1); CREATININE 3.6 mg/dL (0.7-1.3); POTASSIUM 3.9 mmol/L (3.5-5.1)
[2017-07-27 08:17] LABS: ALBUMIN 2.4 g/dL (3.4-5.0); MAGNESIUM 2.7 mg/dL (1.8-2.4); TOTAL BILIRUBIN 0.7 mg/dL (<0.1-1.0); TOTAL PROTEIN 6.6 g/dL (6.4-8.2)
[2017-07-27 08:58] LABS: ABSOLUTE NEUTROPHILS 17.3 thou/uL (1.4-8.2); ANISOCYTOSIS 1+
[2017-07-27 09:27] LABS: URINE BLOOD 3+ (Negative); URINE GLUCOSE-RANDOM* NEGATIVE (Negative); URINE KETONES TRACE (Negative); URINE PROTEIN (DIPSTICK) 3+ (Negative); URINE SPECIFIC GRAVITY 1.015 (1.005-1.035); URINE UROBILINOGEN 0.2 E.U./dl (0.2-1.0)
[2017-07-27 09:28] LABS: URINE LEUKOCYTES-REFLEX 2+ (Negative); URINE NITRITE-REFLEX POSITIVE (Negative)
[2017-07-27 09:29] LABS: ICTOTEST (BILI CONFIRMATORY) Negative (Negative); URINE BILIRUBIN NEGATIVE (Negative); URINE CLARITY CLOUDY; URINE COLOR RED
[2017-07-27] MEDS ORDERED: VITAMIN D3400 UNIT PO (09:34)
[2017-07-27] MEDS ORDERED: DUONEB 2.5-0.5 M3 ML INH (09:35)
[2017-07-27] MEDS ORDERED: COMPAZINE25 MG RECTAL (09:39)
[2017-07-27 09:57] LABS: BACTERIA-REFLEX >30 Many /HPF (None Seen); CASTS None Seen /LPF (None Seen); CRYSTALS None Seen /LPF (None Seen); SQUAMOUS None Seen /LPF (0-3); URINE RBC >20 Many /HPF (0-2); URINE WBC-REFLEX 6-15 Few /HPF (0-5)
[2017-07-28] VITALS: BP 129/98
[2017-07-28 05:00] VITALS: BP 146/78
[2017-07-28 05:36] LABS: HEMATOCRIT 34.9 % (42.0-52.0); HEMOGLOBIN 11.3 gm/dL (14.0-18.0); MCH 25.3 pg (26.0-34.0); MCHC 32.3 g/dL (28.0-37.0); MCV 78.3 fL (80.0-100.0); PLATELET COUNT 134 thou/uL (150-400); RBC 4.45 mil/uL (4.50-6.00); RDW 17.2 % (10.5-14.5); WBC 13.7 thou/uL (4.0-11.0)
[2017-07-28 05:46] LABS: CALCIUM 8.7 mg/dL (8.5-10.1); POTASSIUM 3.7 mmol/L (3.5-5.1)
[2017-07-28 05:59] LABS: CREATININE 2.6 mg/dL (0.7-1.3)
[2017-07-28 07:04] LABS: ABSOLUTE NEUTROPHILS 12.5 thou/uL (1.4-8.2)
[2017-07-28 07:07] LABS: ANISOCYTOSIS 1+; OVALOCYTES 1+
[2017-07-28 08:15] VITALS: BP 148/88
[2017-07-28 11:53] VITALS: BP 139/78
[2017-07-28 16:32] VITALS: BP 147/83
[2017-07-28 20:00] VITALS: BP 142/77
[2017-07-29 05:25] VITALS: BP 127/72
[2017-07-29 06:24] LABS: HEMATOCRIT 34.6 % (42.0-52.0); HEMOGLOBIN 11.1 gm/dL (14.0-18.0); MCH 25.2 pg (26.0-34.0); MCV 78.8 fL (80.0-100.0); RBC 4.39 mil/uL (4.50-6.00); RDW 17.4 % (10.5-14.5); WBC 15.5 thou/uL (4.0-11.0)
[2017-07-29 06:31] LABS: CALCIUM 8.7 mg/dL (8.5-10.1); POTASSIUM 3.4 mmol/L (3.5-5.1)
[2017-07-29 07:25] VITALS: BP 154/96
[2017-07-29 07:48] LABS: ABSOLUTE NEUTROPHILS 13.6 thou/uL (1.4-8.2); ANISOCYTOSIS 1+; METAMYELOCYTES 1 %
[2017-07-29 07:49] LABS: MICROCYTES 1+; OVALOCYTES FEW
[2017-07-29 07:50] LABS: PLATELET COUNT 143 thou/uL (150-400)
[2017-07-29 11:56] VITALS: BP 139/79
[2017-07-29 16:07] VITALS: BP 150/81
[2017-07-29 20:00] VITALS: BP 141/88
[2017-07-30 06:16] LABS: HEMATOCRIT 35.9 % (42.0-52.0); HEMOGLOBIN 11.3 gm/dL (14.0-18.0); MCH 25.1 pg (26.0-34.0); MCHC 31.5 g/dL (28.0-37.0); MCV 79.8 fL (80.0-100.0); PLATELET COUNT 132 thou/uL (150-400); RDW 17.6 % (10.5-14.5); WBC 16.6 thou/uL (4.0-11.0)
[2017-07-30 06:22] LABS: CALCIUM 8.7 mg/dL (8.5-10.1); POTASSIUM 3.6 mmol/L (3.5-5.1)
[2017-07-30 07:53] VITALS: BP 134/77
[2017-07-30 08:12] LABS: ABSOLUTE NEUTROPHILS 14.9 thou/uL (1.4-8.2); PLATELET ESTIMATE SLIGHTLY DECREASED
[2017-07-30 08:14] LABS: TOXIC GRANULATION SLIGHT
[2017-07-30 08:15] LABS: ANISOCYTOSIS 1+
[2017-07-30 08:16] LABS: HYPOCHROMASIA 1+; MICROCYTES 1+
[2017-07-30 11:36] VITALS: BP 127/78
[2017-07-30 15:58] VITALS: BP 130/78
[2017-07-30 19:29] VITALS: BP 136/77
[2017-07-31 04:10] VITALS: BP 145/88
[2017-07-31 06:18] LABS: ALBUMIN 1.9 g/dL (3.4-5.0); CALCIUM 7.7 mg/dL (8.5-10.1); CREATININE 1.8 mg/dL (0.7-1.3); PHOSPHORUS 3.8 mg/dL (2.5-4.9); POTASSIUM 3.7 mmol/L (3.5-5.1)
[2017-07-31 08:20] VITALS: BP 136/77
[2017-07-31 11:32] VITALS: BP 121/73
[2017-07-31 15:05] VITALS: BP 132/75
[2017-07-31 19:20] VITALS: BP 128/72
[2017-08-01 03:22] VITALS: BP 119/60
[2017-08-01 04:28] LABS: HEMATOCRIT 30.8 % (42.0-52.0); HEMOGLOBIN 9.7 gm/dL (14.0-18.0); MCH 25.4 pg (26.0-34.0); MCHC 31.7 g/dL (28.0-37.0); MCV 80.2 fL (80.0-100.0); PLATELET COUNT 120 thou/uL (150-400); RBC 3.84 mil/uL (4.50-6.00); RDW 17.2 % (10.5-14.5); WBC 16.3 thou/uL (4.0-11.0)
[2017-08-01 04:41] LABS: ALBUMIN 1.7 g/dL (3.4-5.0); CALCIUM 7.9 mg/dL (8.5-10.1); CREATININE 1.5 mg/dL (0.7-1.3); PHOSPHORUS 3.1 mg/dL (2.5-4.9); POTASSIUM 3.7 mmol/L (3.5-5.1)
[2017-08-01 08:30] VITALS: BP 131/63
[2017-08-01 11:50] VITALS: BP 135/68
[2017-08-01 11:57] LABS: ABSOLUTE NEUTROPHILS 14.8 thou/uL (1.4-8.2)
[2017-08-01 11:58] LABS: ANISOCYTOSIS 1+; MICROCYTES FEW
[2017-08-01 16:20] VITALS: BP 122/67
[2017-08-01 19:40] VITALS: BP 133/71
[2017-08-02 01:48] VITALS: BP 130/77
[2017-08-02 06:00] VITALS: BP 119/63
[2017-08-02 06:56] LABS: HEMATOCRIT 30.6 % (42.0-52.0); HEMOGLOBIN 9.7 gm/dL (14.0-18.0); MCH 25.2 pg (26.0-34.0); MCHC 31.7 g/dL (28.0-37.0); MCV 79.6 fL (80.0-100.0); PLATELET COUNT 159 thou/uL (150-400); RBC 3.84 mil/uL (4.50-6.00); RDW 16.5 % (10.5-14.5); WBC 16.7 thou/uL (4.0-11.0)
[2017-08-02 07:11] LABS: ALBUMIN 1.8 g/dL (3.4-5.0); CALCIUM 7.6 mg/dL (8.5-10.1); CREATININE 1.2 mg/dL (0.7-1.3); PHOSPHORUS 3.3 mg/dL (2.5-4.9)
[2017-08-02 07:18] LABS: POTASSIUM 2.7 mmol/L (3.5-5.1)
[2017-08-02 08:27] LABS: ABSOLUTE NEUTROPHILS 14.5 thou/uL (1.4-8.2)
[2017-08-02 08:28] VITALS: BP 126/63
[2017-08-02 08:28] LABS: ANISOCYTOSIS 1+; LARGE PLATELETS RARE; PLATELET ESTIMATE NORMAL
[2017-08-02 12:52] VITALS: BP 122/74
[2017-08-02 16:15] VITALS: BP 137/70
[2017-08-02 19:04] VITALS: BP 136/65
[2017-08-03 03:46] VITALS: BP 140/73
[2017-08-03 07:13] LABS: ALBUMIN 1.8 g/dL (3.4-5.0); CALCIUM 7.8 mg/dL (8.5-10.1); CREATININE 1.1 mg/dL (0.7-1.3)
[2017-08-03 08:43] VITALS: BP 142/68
[2017-08-03] MEDS ORDERED: AMOXICILLI250 MG/51 PER TUBE (14:16)
[2017-08-04] MEDS ORDERED: NORCO 5-325 TA1 EACH PO (00:24)
== END 2017-08-03 16:12 | DRG 871 ==
LOC: ER 07:45 → EROBS 08:40 → 3W 08:40
PROVIDERS: Emergency Medicine; Family Medicine; Hospitalist; Internal Medicine Nephrology
DX: A41.9 Sepsis, unspecified organism (principal); G92 Toxic encephalopathy; N17.9 Acute kidney failure, unspecified; E87.0 Hyperosmolality and hypernatremia; R47.01 Aphasia; E87.1 Hypo-osmolality and hyponatremia; N13.30 Unspecified hydronephrosis; N12 Tubulo-interstitial nephritis, not specified as acute or chronic; F32.9 Major depressive disorder, single episode, unspecified; E78.5 Hyperlipidemia, unspecified; N40.0 Benign prostatic hyperplasia without lower urinary tract symptoms; E11.9 Type 2 diabetes mellitus without complications; I10 Essential (primary) hypertension; E86.0 Dehydration; F03.90 Unspecified dementia, unspecified severity, without behavioral disturbance, psychotic disturbance, mood disturbance, and anxiety; R65.20 Severe sepsis without septic shock; E86.9 Volume depletion, unspecified; F17.210 Nicotine dependence, cigarettes, uncomplicated; R33.9 Retention of urine, unspecified; N21.0 Calculus in bladder; Z79.899 Other long term (current) drug therapy; Z79.4 Long term (current) use of insulin; Z91.030 Bee allergy status; Z86.73 Personal history of transient ischemic attack (TIA), and cerebral infarction without residual deficits; Z85.46 Personal history of malignant neoplasm of prostate
CPT/HCPCS: 10879

== ENCOUNTER 2017-08-03 23:43 | Emergency (ER) | payer OTHER ==
[~2017-08-03] VITALS: Ht 182.9 cm; Wt 78.5 kg
[~2017-08-03 23:43] MED LIST changes: +AMOXICILLI250 MG/51 PER TUBE; +COMPAZINE25 MG RECTAL
[2017-08-04] MEDS ORDERED: NORCO 5-325 TA1 EACH PO (00:24)
[2017-08-04 02:15] VITALS: BP 132/73
== END 2017-08-04 02:20 ==
LOC: ER 23:43
DX: S63.501A Unspecified sprain of right wrist, initial encounter (principal); S01.81XA Laceration without foreign body of other part of head, initial encounter; F32.9 Major depressive disorder, single episode, unspecified; E78.5 Hyperlipidemia, unspecified; M71.9 Bursopathy, unspecified; G62.9 Polyneuropathy, unspecified; N40.0 Benign prostatic hyperplasia without lower urinary tract symptoms; E11.9 Type 2 diabetes mellitus without complications; I10 Essential (primary) hypertension; W06.XXXA Fall from bed, initial encounter; Y93.89 Activity, other specified; Y92.89 Other specified places as the place of occurrence of the external cause; Y99.8 Other external cause status

== ENCOUNTER 2017-08-18 07:18 | Emergency (ER) | payer OTHER ==
[~2017-08-18] VITALS: Ht 182.9 cm; Wt 90.7 kg
[~2017-08-18 07:18] MED LIST changes: +NORCO 5-325 TA1 EACH PO
[2017-08-18 12:00] LABS: URINE BILIRUBIN NEGATIVE (Negative); URINE BLOOD 3+ (Negative); URINE CLARITY SL CLOUDY; URINE COLOR YELLOW; URINE GLUCOSE-RANDOM* NEGATIVE (Negative); URINE KETONES NEGATIVE (Negative); URINE NITRITE-REFLEX NEGATIVE (Negative); URINE PROTEIN (DIPSTICK) TRACE (Negative); URINE SPECIFIC GRAVITY <= 1.005 (1.005-1.035); URINE UROBILINOGEN 0.2 E.U./dl (0.2-1.0)
[2017-08-18 12:01] LABS: URINE LEUKOCYTES-REFLEX 3+ (Negative)
[2017-08-18 12:14] LABS: CASTS None Seen /LPF (None Seen); CRYSTALS None Seen /LPF (None Seen); SQUAMOUS None Seen /LPF (0-3)
[2017-08-18 14:43] VITALS: BP 128/82
== END 2017-08-18 14:47 ==
LOC: ER 07:18
PROVIDERS: Emergency Medicine
DX: T83.018A Breakdown (mechanical) of other urinary catheter, initial encounter (principal); Y84.9 Medical procedure, unspecified as the cause of abnormal reaction of the patient, or of later complication, without mention of misadventure at the time of the procedure; Y92.89 Other specified places as the place of occurrence of the external cause; R31.0 Gross hematuria; R33.9 Retention of urine, unspecified; F32.9 Major depressive disorder, single episode, unspecified; E78.5 Hyperlipidemia, unspecified; N40.0 Benign prostatic hyperplasia without lower urinary tract symptoms; E11.40 Type 2 diabetes mellitus with diabetic neuropathy, unspecified; I10 Essential (primary) hypertension; Z86.73 Personal history of transient ischemic attack (TIA), and cerebral infarction without residual deficits; Z87.440 Personal history of urinary (tract) infections; Z79.4 Long term (current) use of insulin

== ENCOUNTER → 2017-08-23 | Outpatient (CLI) | payer OTHER ==
[~2017-08-23] MED LIST changes: +AUGMENTIN 875-1 EACH PO; +CENTRUM SILVER1 EAC4 PO; +COMPAZINE25 M1 RECTAL; +HYDROCODONE-AP1 EAC6 PO; +LEVEMIR SUBQ; +LIPITOR10 MG PO; +MIRALAX17 G1 PO; +NOVOLOG100 UNIT/1 SUBQ; +PYRIDIUM100 M1 PO; +VITAMIN D1000 UNI1 PO
== END ==
LOC: RAD 09:09 → SPEECH 09:09 → RAD 13:09
DX: R13.12 Dysphagia, oropharyngeal phase (principal); N39.0 Urinary tract infection, site not specified; J32.8 Other chronic sinusitis; E78.5 Hyperlipidemia, unspecified; N40.0 Benign prostatic hyperplasia without lower urinary tract symptoms; E11.42 Type 2 diabetes mellitus with diabetic polyneuropathy; E86.0 Dehydration; I10 Essential (primary) hypertension; E87.6 Hypokalemia; Z85.46 Personal history of malignant neoplasm of prostate

== ENCOUNTER 2017-09-22 09:53 | Inpatient (IN) | payer OTHER ==
[~2017-09-22] VITALS: Ht 170.2 cm; Wt 76.9 kg
[~2017-09-22 09:53] MED LIST changes: -AUGMENTIN 875-1 EACH PO; -CENTRUM SILVER1 EAC4 PO; -COMPAZINE25 M1 RECTAL; -HYDROCODONE-AP1 EAC6 PO; -LEVEMIR SUBQ; -LIPITOR10 MG PO; -MIRALAX17 G1 PO; -NOVOLOG100 UNIT/1 SUBQ; -PYRIDIUM100 M1 PO; -VITAMIN D1000 UNI1 PO
[2017-09-22 09:54] VITALS: BP 152/82
[2017-09-22 10:23] LABS: HEMATOCRIT 30.6 % (42.0-52.0); MCH 25.7 pg (26.0-34.0); MCHC 32.7 g/dL (28.0-37.0); MCV 78.4 fL (80.0-100.0); PLATELET COUNT 246 thou/uL (150-400); RDW 17.4 % (10.5-14.5); WBC 17.3 thou/uL (4.0-11.0)
[2017-09-22 10:32] LABS: CALCIUM 8.7 mg/dL (8.5-10.1); CREATININE 1.1 mg/dL (0.7-1.3); POTASSIUM 3.2 mmol/L (3.5-5.1)
[2017-09-22 11:12] LABS: ABSOLUTE NEUTROPHILS 16.1 thou/uL (1.4-8.2)
[2017-09-22 11:17] LABS: URINE BILIRUBIN NEGATIVE (Negative); URINE BLOOD 3+ (Negative); URINE CLARITY CLEAR; URINE COLOR YELLOW; URINE GLUCOSE-RANDOM* NEGATIVE (Negative); URINE KETONES NEGATIVE (Negative); URINE LEUKOCYTES-REFLEX 3+ (Negative); URINE NITRITE-REFLEX NEGATIVE (Negative); URINE PROTEIN (DIPSTICK) NEGATIVE (Negative); URINE SPECIFIC GRAVITY <= 1.005 (1.005-1.035); URINE UROBILINOGEN 0.2 E.U./dl (0.2-1.0)
[2017-09-22 11:22] LABS: ANISOCYTOSIS 1+; OVALOCYTES FEW
[2017-09-22 11:27] LABS: SQUAMOUS None Seen /LPF (0-3)
[2017-09-22 11:28] LABS: BACTERIA-REFLEX >30 Many /HPF (None Seen); CASTS None Seen /LPF (None Seen); CRYSTALS None Seen /LPF (None Seen); URINE RBC 3-10 Few /HPF (0-2); URINE WBC-REFLEX >25 Many /HPF (0-5)
[2017-09-22] MEDS ORDERED: LEVEMIR SUBQ (13:52)
[2017-09-22] MEDS ORDERED: CENTRUM SILVER1 EAC4 PO (13:53)
[2017-09-22] MEDS ORDERED: VITAMIN D1000 UNI1 PO (13:54)
[2017-09-22] MEDS ORDERED: VITAMIN D3400 UNIT PO (13:54)
[2017-09-22] MEDS ORDERED: NOVOLOG100 UNIT/1 SUBQ (13:55)
[2017-09-22] MEDS ORDERED: VITAMINC500 PO (13:55)
[2017-09-22] MEDS ORDERED: LIPITOR10 MG PO (13:55)
[2017-09-22] MEDS ORDERED: COMPAZINE25 M1 RECTAL (13:56)
[2017-09-22] MEDS ORDERED: HYDROCODONE-AP1 EAC6 PO (13:56)
[2017-09-22] MEDS ORDERED: MIRALAX17 G1 PO (14:39)
[2017-09-22] MEDS ORDERED: TYLENOL325 MG PO (14:40)
[2017-09-22 15:21] VITALS: BP 140/80
[2017-09-22 15:29] VITALS: BP 140/80
[2017-09-22 18:06] VITALS: BP 142/74
[2017-09-22 18:14] VITALS: BP 144/84
[2017-09-22 21:02] VITALS: BP 147/76
[2017-09-23 03:40] VITALS: BP 149/76
[2017-09-23 06:14] LABS: HEMATOCRIT 26.7 % (42.0-52.0); HEMOGLOBIN 8.9 gm/dL (14.0-18.0); MCH 26.2 pg (26.0-34.0); MCHC 33.3 g/dL (28.0-37.0); MCV 78.6 fL (80.0-100.0); RBC 3.39 mil/uL (4.50-6.00); RDW 17.2 % (10.5-14.5); WBC 10.9 thou/uL (4.0-11.0)
[2017-09-23 06:23] LABS: CALCIUM 8.7 mg/dL (8.5-10.1); CREATININE 0.8 mg/dL (0.7-1.3)
[2017-09-23 06:27] LABS: POTASSIUM 2.6 mmol/L (3.5-5.1)
[2017-09-23 06:30] LABS: ALBUMIN 2.5 g/dL (3.4-5.0); PHOSPHORUS 2.3 mg/dL (2.5-4.9)
[2017-09-23 08:22] VITALS: BP 164/89
[2017-09-23 12:17] LABS: CALCIUM 8.2 mg/dL (8.5-10.1); POTASSIUM 3.5 mmol/L (3.5-5.1)
[2017-09-23 17:20] VITALS: BP 161/93
[2017-09-23 20:10] VITALS: BP 168/94
[2017-09-24 03:44] VITALS: BP 145/96
[2017-09-24 04:02] LABS: CALCIUM 8.5 mg/dL (8.5-10.1); CREATININE 0.9 mg/dL (0.7-1.3); POTASSIUM 3.2 mmol/L (3.5-5.1)
[2017-09-24 08:00] VITALS: BP 168/97
[2017-09-24] MEDS ORDERED: AUGMENTIN 875-1 EACH PO (10:38)
[2017-09-24] MEDS ORDERED: PYRIDIUM100 M1 PO (10:39)
== END 2017-09-24 16:00 | DRG 871 ==
LOC: ER 09:53 → EROBS 11:45 → 4S 11:45
PROVIDERS: Emergency Medicine; Hospitalist; Nurse Practitioner Acute Care
DX: A41.9 Sepsis, unspecified organism (principal); E43 Unspecified severe protein-calorie malnutrition; N39.0 Urinary tract infection, site not specified; N21.0 Calculus in bladder; F32.9 Major depressive disorder, single episode, unspecified; E78.5 Hyperlipidemia, unspecified; I10 Essential (primary) hypertension; E11.40 Type 2 diabetes mellitus with diabetic neuropathy, unspecified; N40.1 Benign prostatic hyperplasia with lower urinary tract symptoms; R33.8 Other retention of urine; N13.9 Obstructive and reflux uropathy, unspecified; F03.90 Unspecified dementia, unspecified severity, without behavioral disturbance, psychotic disturbance, mood disturbance, and anxiety; F17.210 Nicotine dependence, cigarettes, uncomplicated; Z68.26 Body mass index [BMI] 26.0-26.9, adult; Z87.442 Personal history of urinary calculi; Z86.73 Personal history of transient ischemic attack (TIA), and cerebral infarction without residual deficits; Z79.4 Long term (current) use of insulin; Z79.82 Long term (current) use of aspirin; Z79.84 Long term (current) use of oral hypoglycemic drugs; Z79.899 Other long term (current) drug therapy
CPT/HCPCS: 10102

== ENCOUNTER 2019-03-24 18:37 | Emergency (ER) | payer OTHER ==
[~2019-03-24] VITALS: Ht 180.3 cm; Wt 68.0 kg
--- NOTE | ~2019-03-24 | EMS ---
[address] [address] EMS Patient Care Report Name: RALF LOUIS Room #: DEP MARLEN Connelly#: [id number] Admission: 03/24/19 ������������������ Attend Phys: Discharge: 03/25/19 ������������������ Date of : 53 Report #: [id number] THIS REPORT FOR: //name// Report Transmitted: 03/28/2019 09:14 EMS Care Summary [place], [place]/[facility] Incident [id number] @ 03/24/2019 18:08 Incident Location [address] [facility] 324 Patient RALF LOUIS Male, 64 Years 1955 Patient Address [address] [place] [address] Patient History Dementia,Urinary Tract Infection (UTI), Patient Allergies No known allergies, Patient Medications Rocephin, Chief Complaint URINARY CATH REPLACEMENT Disposition Transported No Lights/[place] Dispatch Reason Sick Person Transported To [facility] Narrative M28 DISPATCHED TO [facility] ON A REPORT OF A SICK PERSON. UPON ARRIVAL ON SCENE EMS FIND 63/M LYING IN FACILITY BED IN NO APPARENT DISTRESS. PT ATTENDING NURSE INFORMED EMS THAT PT URINARY CATHETER HAD BEEN LEAKING, [address] [address] EMS Patient Care Report Name: RALF LOUIS JR Room #: DEP Maricel#: [id number] Admission: 03/24/19 ������������������ Attend Phys: Discharge: 03/25/19 ������������������ Date of : 53 Report #: [id number] ATTENDING NURSE REMOVED CATHETER AND ATTEMPTED TO PLACE NEW CATHETER BUT WAS UNSUCCESSFUL. NURSING STAFF ALSO INFORMED EMS THAT PT HAD SKIN INFECTION ON PENIS WHICH PT WAS ON ANTIBIOTICS FOR. PT WAS TO BE TRANSPORTED TO ER FACILITY TO HAVE URINARY CATHETER REPLACED. PT COMPLAINED OF LIGHT PAIN IN GROIN AREA. PT ABLE TO STAND AND PIVOT ONTO EMS STRETCHER, WHERE PT WAS THEN SEATED IN POSITION OF COMFORT WITH STRETCHER GUARDRAILS PLACED IN UPRIGHT LOCKED POSITION AND SEATBELTS FASTENED. PT MOVED ON EMS STRETCHER INTO AMBULANCE FOR FURTHER EVALUATION. PT VITALS OBTAINED AND SUPPORTIVE CARE PROVIDED. NO NOTICEABLE CHANGES IN PT CONDITION DURING TRANSPORT TO RECEIVING FACILITY. UPON ARRIVAL TO [facility] PT MOVED INTO FACILITY ER ON EMS STRETCHER, WHERE PT WAS THEN TRANSFERRED ONTO HOSPITAL BED BY EMS AND RECEIVING NURSING STAFF WITHOUT INCIDENT. PT REPORT GIVEN TO RECEIVING NURSING STAFF AND TRANSFER OF PT CARE COMPLETED. Initial Vitals @18:25P: 101,R: 16,BP: 139/94,Pain: 0/10,GCS: 14,SpO2: 96,Revised Trauma: 12, @18:27P: 103,R: 16,BP: 143/96,Pain: 0/10,GCS: 15,CO: 2,SpO2: 95,Revised Trauma: 12, Assessments @18:20MENTAL:Confused,Person Oriented,Place Oriented,SKIN:HEENT:Neck/Airway: No Abnormalities,LUNG SOUNDS:Left Upper: No Abnormalities,Right Upper: No Abnormalities,Left Lower: No Abnormalities,Right Lower: No Abnormalities,ABDOMEN:Left Upper: No Abnormalities,Right Upper: No Abnormalities,Left Lower: No Abnormalities,Right Lower: No Abnormalities,PELVIS//GI:Pelvis GUOther,EXTREMITIES:Left Arm: No Abnormalities,Right Arm: No Abnormalities,Left Leg: No Abnormalities,Right Leg: No Abnormalities,PULSE:NEURO: Impression director of preclinical research failure Procedures @18:20ALS AssessmentResponse: UnchangedSucceeded@18:22StretcherResponse: Unchanged Timeline 18:07,Call Received 18:07,Dispatch Notified 18:08,Dispatched 18:10,En Route 18:16,On Scene 18:19,At Patient 18:20,ALS Assessment,Response: UnchangedSucceeded, 18:22,Stretcher,Response: Unchanged 18:25,BP: 139/94 M,PULSE: 101,RR: 16 R,SPO2: 96 Ox,ETCO2: ,BG: ,PAIN: 0,GCS: [address] [address] EMS Patient Care Report Name: [facility]ALF LOUIS [id number] Admission: 03/24/19 ������������������ Attend Phys: Discharge: 03/25/19 ������������������ Date of : 51 Report #: [id number] 14, 18:27,BP: 143/96 M,PULSE: 103,RR: 16 R,SPO2: 95 Ox,ETCO2: ,BG: ,PAIN: 0,GCS: 15, 18:33,Depart Scene 18:41,At Destination 18:50,Call Closed Disclaimer v1.1 Copyright 2019 [employer] This EMS Care Summary contains data elements from the applicable legal record (which may be displayed differently). It is designed to provide pertinent information for the following purposes: continuity of care, clinical quality, and state data reporting. The complete legal record is available to ED staff and administrators of the receiving hospital in [employer]'s Patient Tracker. All data is provided "as is."
[2019-03-24 18:37] VITALS: BP 139/91; BP 161/88
[~2019-03-24 18:37] MED LIST changes: +AUGMENTIN 875-1 EACH PO; +CENTRUM SILVER1 EAC4 PO; +COMPAZINE25 M1 RECTAL; +HYDROCODONE-AP1 EAC6 PO; +LEVEMIR SUBQ; +LIPITOR10 MG PO; +MIRALAX17 G1 PO; +NOVOLOG100 UNIT/1 SUBQ; +PYRIDIUM100 M1 PO; +VITAMIN D1000 UNI1 PO
[2019-03-24] MEDS ORDERED: LEVSIN0.125 MG PO (18:46)
[2019-03-24] MEDS ORDERED: NORCO 5-325 TA1 EAC1 PO (18:46)
[2019-03-24] MEDS ORDERED: ROCEPHIN 11 GM/1001 IM (19:04)
[2019-03-24 19:21] LABS: BASOPHILS 0.7 % (0.0-2.0); EOSINOPHILS 0.4 % (0.0-3.0); HEMATOCRIT 30.2 % (42.0-52.0); HEMOGLOBIN 9.5 gm/dL (14.0-18.0); LYMPHOCYTES 11.8 % (24.0-44.0); MCH 23.8 pg (26.0-34.0); MCHC 31.3 g/dL (28.0-37.0); MONOCYTES 6.3 % (1.0-8.0); PLATELET COUNT 394 thou/uL (150-400); POLYS 80.8 % (36.0-66.0); RBC 3.97 mil/uL (4.50-6.00); WBC 11.2 thou/uL (4.0-11.0)
[2019-03-24 19:24] LABS: CALCIUM 8.8 mg/dL (8.5-10.1); CREATININE 2.4 mg/dL (0.7-1.3)
[2019-03-24 20:36] LABS: URINE BILIRUBIN NEGATIVE (Negative); URINE BLOOD 2+ (Negative); URINE CLARITY TURBID; URINE COLOR YELLOW; URINE GLUCOSE-RANDOM* NEGATIVE (Negative); URINE KETONES NEGATIVE (Negative); URINE PROTEIN (DIPSTICK) 1+ (Negative); URINE SPECIFIC GRAVITY 1.025 (1.005-1.035); URINE UROBILINOGEN 0.2 E.U./dl (0.2-1.0)
[2019-03-24 20:38] LABS: URINE LEUKOCYTES-REFLEX 2+ (Negative); URINE NITRITE-REFLEX POSITIVE (Negative)
[2019-03-24 20:51] LABS: BACTERIA-REFLEX >30 Many /HPF (None Seen); CASTS None Seen /LPF (None Seen); MUCUS None Seen strn/LPF (None Seen); SQUAMOUS None Seen /LPF (0-3); URINE WBC-REFLEX >25 Many /HPF (0-5)
[2019-03-24 20:52] LABS: CRYSTALS None Seen /LPF (None Seen)
[2019-03-24 22:23] VITALS: BP 106/57
[2019-03-25 01:40] VITALS: BP 161/93
== END 2019-03-25 01:42 | disposition still patient (30) ==
LOC: ER 18:37 → EROBS 21:43 → ER 03-25 01:42
PROVIDERS: Emergency Medicine
DX: S31.20XA Unspecified open wound of penis, initial encounter (principal); N39.0 Urinary tract infection, site not specified; E78.5 Hyperlipidemia, unspecified; N40.0 Benign prostatic hyperplasia without lower urinary tract symptoms; E11.40 Type 2 diabetes mellitus with diabetic neuropathy, unspecified; I10 Essential (primary) hypertension; F32.9 Major depressive disorder, single episode, unspecified; F17.210 Nicotine dependence, cigarettes, uncomplicated; Z87.440 Personal history of urinary (tract) infections; Z86.73 Personal history of transient ischemic attack (TIA), and cerebral infarction without residual deficits; Z79.4 Long term (current) use of insulin; X58.XXXA Exposure to other specified factors, initial encounter; Y93.89 Activity, other specified; Y92.89 Other specified places as the place of occurrence of the external cause; Y99.8 Other external cause status